=== PATIENT | female | born 1990 | race Caucasian/White ===

== ENCOUNTER 2022-06-03 07:46 | Outpatient (CLI) | payer OTHER, MEDICAID, SELFPAY | END 2022-06-03 07:47 | disposition home or self-care (01) | LOC: INJ CL 07:48 | PROVIDERS: Visit Provider Family Medicine | DX: M54.16 Radiculopathy, lumbar region (principal); M51.26 Other intervertebral disc displacement, lumbar region | CPT/HCPCS: 64483; 64484; J1100; Q9966 ==